=== PATIENT | male | born 1965 | race Caucasian/White ===

== ENCOUNTER 2021-05-20 13:06 | Observation (INO) | payer OTHER ==
[~2021-05-20] VITALS: Ht 167.6 cm; Wt 74.5 kg
[2021-05-20] VITALS (7 sets, daily range): BP systolic 107–123; BP diastolic 66–79
--- NOTE | 2021-05-20 13:06 | NUR ---
PT TO ED ROOM 15 VIA STRETCHER. CP HAS RESOLVED, HEADACHE PRESENT AND RATES AT 10/10. PT ACCOMPANIED BY CAMPAIGN FUNDRAISER. PT ALERT AND ORIENTED. DR LOPEZ AT THE BEDSIDE.
--- NOTE | 2021-05-20 13:17 | NUR ---
STROKE ALERT CALLED AT THIS TIME.
[2021-05-20 13:42] LABS: HEMOGLOBIN 12.4 g/dl (14.0-18.0); IMMATURE GRANULOCYTES 0.3 % (0.0-5.0); MEAN CELL VOLUME 91.3 fL CALC (80.0-100.0); MEAN CORPUSCULAR HGB 29.8 pG CALC (26.0-32.0); MEAN CORPUSCULAR HGB CONC 32.6 g/dL CAL (32.0-36.0); NEUT# 4.82 thou/uL (1.82-7.42); RED BLOOD COUNT 4.16 mill/uL (4.70-6.10); RED CELL DISTRI WIDTH 13.4 % (11.5-15.5)
[2021-05-20 13:52] LABS: ALBUMIN 3.5 g/dL (3.2-5.0); ALKALINE PHOSPHATASE 72 u/l (38-126); ANION GAP 12 (6-22 (CALC)); BILIRUBIN, TOTAL 0.3 mg/dL (0.0-1.4); BUN 12 mg/dL (9-20); BUN/CREATININE RATIO 20 (12-20 (CALC)); CARBON DIOXIDE 25 mmol/l (22-30); CHLORIDE 106 mmol/l (95-108); CREATININE 0.6 mg/dL (0.7-1.3); GFR > 60 ML/MIN (>=60 (CALC)); GFR FOR AFR.AMER. > 60 ML/MIN (>=60 (CALC)); POTASSIUM 4.1 mmol/l (3.5-5.1); SGOT/AST 38 u/l (17-59); SODIUM 139 mmol/l (137-146); TOTAL PROTEIN 6.4 g/dL (6.3-8.2)
[2021-05-20 14:02] LABS: PROTHROMBIN TIME 10.3 SECONDS (9.0-12.5)
--- NOTE | 2021-05-20 16:50 | NUR ---
PT ARRIVES TO UNIT WITH EMAIL MARKETER, AND DEPUTY, PT IS IN W/C WITH HANDCUFF TO HANDS AND ANKLES. PT TRANSFERS TO BED WITH NO DIFFICULTIES. PT A&O, FOLLOWS COMMANDS AND RESPONDS TO QUESTIONS APPROPRIATELY. PT HAS NO C/O PAIN, SOB, CP, DIZZINESS. PT HAS SOME LLE WEAKNESS, PT ABLE TO LIFT LEFT LEG BUT DRIFTS DOWNWARD, PT DOPSTER EQUALLY STRONG. PT HAS NO ASYM. PT VSS. PT IS ON RA O2 SAT 97%. PT HAS CALL LIGHT NEAR, WAS GIVEN PT URINAL, PT REQUESTING DINNER TRAY, PT GIVEN WATER TO ASSESS FOR ANY DIFFICULTY SWALLOWING, NO INDICATIONS ANY DIFFICULTY. PT HAS SKIN ISSUES. PT HAS OFFICER AT BEDSIDE. NEURO ASSESSMENT DONE, FURTHER NIH SCORING IN CHART. WILL CONTINUE TO MONITOR.
--- NOTE | 2021-05-20 23:15 | NUR ---
PATIENT RESTING IN BED. NO S/S OF DISTRESS OR PAIN .DENIES ANY WEAKNESS OR NUMBNESS TO ANY EXTREMITIES. NO C/O OF CP. VITAL SIGN STABLE.
[2021-05-21] VITALS (16 sets, daily range): BP systolic 98–135; BP diastolic 55–117
[2021-05-21 06:01] LABS: HEMATOCRIT 39.1 % (39.0-50.0); HEMOGLOBIN 12.9 g/dl (14.0-18.0); MEAN CORPUSCULAR HGB 30.4 pG CALC (26.0-32.0); RED BLOOD COUNT 4.25 mill/uL (4.70-6.10); RED CELL DISTRI WIDTH 13.4 % (11.5-15.5)
[2021-05-21 06:22] LABS: ALBUMIN 3.5 g/dL (3.2-5.0); ALKALINE PHOSPHATASE 77 u/l (38-126); ANION GAP 11 (6-22 (CALC)); BILIRUBIN, TOTAL 0.3 mg/dL (0.0-1.4); BUN 13 mg/dL (9-20); BUN/CREATININE RATIO 16 (12-20 (CALC)); CALCULATED LDLCHOLESTEROL 71 mg/dL (62-129 (CALC)); CARBON DIOXIDE 26 mmol/l (22-30); CHLORIDE 103 mmol/l (95-108); CHOLESTEROL HDL RATIO 3.6 (<4.4 (CALC)); CREATININE 0.8 mg/dL (0.7-1.3); GFR > 60 ML/MIN (>=60 (CALC)); GFR FOR AFR.AMER. > 60 ML/MIN (>=60 (CALC)); HDL CHOLESTEROL 40 mg/dL (>=40); MAGNESIUM 1.8 mg/dL (1.6-2.3); POTASSIUM 4.3 mmol/l (3.5-5.1); SGOT/AST 38 u/l (17-59); SODIUM 137 mmol/l (137-146); TOTAL CHOLESTEROL 143 mg/dl (0-199); TOTAL PROTEIN 6.3 g/dL (6.3-8.2); TOTAL TRIGLYCERIDES 160 mg/dl (30-149); VLDL CHOLESTROL 32 mg/dl (8-62 (CALC))
--- NOTE | 2021-05-21 06:54 | NUR ---
REPORT RECEIVED FROM PIPE STEM ALIGNER. PT ALERT/ORIENTED X3, GUARD IN ROOM, RUST OBTAINED AND REMAINS A 0 AT THIS TIME. LUNGS CLEAR, SPEACH NORMAL, VITAL SIGNS STABLE.
--- NOTE | 2021-05-21 07:50 | NUR ---
PT TAKEN PER W/C TO MRI, ACCOMPANIED BY GUARD. DR. FOURNIER EXAMINED PT BEFORE HE LEFT UNIT.
--- NOTE | 2021-05-21 08:40 | NUR ---
PT RETURNS FROM MRI, NOW WITH THROBBING HEADACHE AND RIGHT ARM NUMBNESS. PT THINKS ARM ISSUE MAY BE FROM POSITIONING DURING MRI. PHYSICIAN MADE AWARE.
--- NOTE | 2021-05-21 08:41 | NUR ---
OT arrived for skilled OT evaluation. Nursing reported pt was undergoing MRI. OT will return at later time.
--- NOTE | 2021-05-21 08:55 | NUR ---
pt back from mri, complaints of headache remains, notified and new order placed.
--- NOTE | 2021-05-21 10:27 | NUR ---
pt resting quietly on bed with guard at bedside, no complaints a this time, no weakness noted , maew.
--- NOTE | 2021-05-21 12:14 | NUR ---
pt laying in bed watching tv at this time, maew, picking up food with both arms, no numbness at this time. vital signs stable.
--- NOTE | 2021-05-21 14:37 | NUR ---
PT SPEAKING WITH PHYSICAL THERAPY. DENIES ANY COMPLAINTS AT THIS TIME. ASKED FOR SOMETHING EXTRA TO DRINK AND EAT. PUNEET GIVEN.
--- NOTE | 2021-05-21 15:01 | NUR ---
ADVISED PT THAT ROUNDING OF TELENEUROLOGY WILL BE IN ABOUT AN HOUR. PT VOICES UNDERSTANDING. UP TO BATHROOM ON OWN WITH STEADY GAIT
--- NOTE | 2021-05-21 16:05 | NUR ---
PT PER NEUROLOGISTHAS MRI OF CPINE ORDERED WITH NEW MEDS TO BE GIVEN. ADVISED NEUROLOGIST, THAT PT NEEDS TO BE DISCHARGED IN EARLY AM AND WE MIGHT HAVE TO HAVE MRIS DONE PER OUT PT.
--- NOTE | 2021-05-21 17:25 | NUR ---
DR NOTIFIED OF NEUROLOGIST SUGGESTION, AND DR. FOURNIER WILL DISCHARGE PT WITH FOLLOW UP OUTPT MRI OF CSPINE AND NECK. PT STATES HE HAS TO BE DISCHARGED FOR COURT DATE IN AM HE CANT MISS.
[2021-05-21] MEDS ORDERED: ASPIRIN81 MG PO (17:31)
[2021-05-21] MEDS ORDERED: NEURONTIN100 MG PO (17:31)
[2021-05-21] MEDS ORDERED: FIORICET PO (17:31)
--- NOTE | 2021-05-21 17:48 | NUR ---
D/C'D IV SITE, AND PT IS GETTING DRESSED IN CLOTHES HELPED BY GUARD
--- NOTE | 2021-05-21 17:57 | NUR ---
PT DISCHARGED WITH INST. AND RX. VOICES UNDERSTANDING. TAKEN DOWN TO WAIT TRANSPORT TO FRONT WITH GUARD BY WHEELCHAIR.
== END 2021-05-21 18:00 | DRG 313 ==
LOC: ED 13:06 → ED-I 15:16 → ED 15:35 → ICU 15:36
PROVIDERS: Family Medicine; ADMIT Internal Medicine; ATTEND Internal Medicine
DX: R07.2 Precordial pain (principal); I69.354 Hemiplegia and hemiparesis following cerebral infarction affecting left non-dominant side; D15.1 Benign neoplasm of heart; F17.200 Nicotine dependence, unspecified, uncomplicated; Z79.02 Long term (current) use of antithrombotics/antiplatelets; Z79.82 Long term (current) use of aspirin; Z20.822 Contact with and (suspected) exposure to COVID-19
CPT/HCPCS: Q9967

== ENCOUNTER 2022-04-19 19:08 | Emergency (ER) | payer SELFPAY ==
[2022-04-19] VITALS (16 sets, daily range): BP systolic 108–130; BP diastolic 70–92
[~2022-04-19] VITALS: Ht 167.6 cm; Wt 72.0 kg
[~2022-04-19 19:08] MED LIST: ASPIRIN81 MG PO; FIORICET PO; NEURONTIN100 MG PO
[2022-04-19 19:48] LABS: BASO% 0.4 % (0-3); EOS% 0.8 % (0-8); IMMATURE GRANULOCYTES 0.1 % (0.0-5.0); LYMPH% 24.6 % (15-41); MEAN CELL VOLUME 91.7 fL CALC (80.0-100.0); MEAN CORPUSCULAR HGB CONC 32.7 g/dL CAL (32.0-36.0); MONO% 12.6 % (2-13); NEUT# 4.57 thou/uL (1.82-7.42); NEUT% 61.5 % (42-76); RED BLOOD COUNT 5.3 mill/uL (4.70-6.10); RED CELL DISTRI WIDTH 13.2 % (11.5-15.5)
[2022-04-19 19:50] LABS: HEMATOCRIT 48.6 % (39.0-50.0); HEMOGLOBIN 15.9 g/dl (14.0-18.0)
[2022-04-19 20:01] LABS: ALKALINE PHOSPHATASE 91 u/l (38-126); ANION GAP 15 (6-22 (CALC)); BUN 14 mg/dL (9-20); BUN/CREATININE RATIO 16 (12-20 (CALC)); CARBON DIOXIDE 25 mmol/l (22-30); CHLORIDE 107 mmol/l (95-108); CREATININE 0.9 mg/dL (0.7-1.3); GFR FOR AFR.AMER. > 60 ML/MIN (>=60 (CALC)); GFR OTHER RACES > 60 ML/MIN (>=60 (CALC)); LIPASE 33 u/l (23-300); SGOT/AST 66 u/l (17-59); SODIUM 142 mmol/l (137-146)
[2022-04-19 20:07] LABS: ALBUMIN 4.9 g/dL (3.2-5.0); BILIRUBIN, TOTAL 1.2 mg/dL (0.2-1.3); TOTAL PROTEIN 8.5 g/dL (6.3-8.2)
[2022-04-19 23:25] LABS: URINE BLOOD DIPSTICK NEGATIVE (NEGATIVE); URINE GLUCOSE - DIPSTICK NEGATIVE (NEGATIVE); URINE KETONE TRACE mg/dL (NEGATIVE); URINE LEUK ESTERASE NEGATIVE (NEGATIVE); URINE PH 5.5 (4.5-8.0); URINE PROTEIN - DIPSTICK TRACE mg/dL (NEG-TRACE); URINE SPECIFIC GRAVITY >=1.030; URINE UROBILINOGEN - DIPSTICK 0.2 E.U./dL (0.2)
[2022-04-19 23:27] LABS: URINE BILIRUBIN - DIPSTICK SMALL (NEGATIVE)
[2022-04-19 23:28] LABS: URINE COLOR DK. YELLOW; URINE NITRITE - DIPSTICK POSITIVE (Negative)
[2022-04-19 23:32] LABS: URINE BACTERIA MODERATE hpf; URINE EPITHELIAL CELLS FEW EPI/hpf (0-FEW); URINE MUCUS MANY hpf (NONE-FEW)
[2022-04-19] MEDS ORDERED: BACTRIM DS1 TAB PO (23:41)
[2022-04-20] VITALS: BP 106/70
[2022-04-20 00:15] VITALS: BP 111/71
[2022-04-20 00:30] VITALS: BP 107/70
[2022-04-20 00:45] VITALS: BP 102/65
[2022-04-20 01:00] VITALS: BP 98/66
[2022-04-20 01:10] VITALS: BP 98/66
== END 2022-04-20 01:10 | disposition home or self-care (01) | DRG 690 ==
LOC: ED 19:08
PROVIDERS: Nurse Practitioner
DX: N39.0 Urinary tract infection, site not specified (principal); R10.31 Right lower quadrant pain; F17.200 Nicotine dependence, unspecified, uncomplicated